=== PATIENT | male | born 1985 | race Caucasian/White ===

== ENCOUNTER 2017-01-28 04:11 | Emergency (ER) | payer SELFPAY ==
[~2017-01-28] VITALS: Ht 185.4 cm; Wt 86.0 kg
[2017-01-28 09:16] VITALS: BP 127/90
== END 2017-01-28 09:35 | disposition home or self-care (01) ==
LOC: EDBD 04:11 → ED 09:00
DX: S00.81XA Abrasion of other part of head, initial encounter (principal); F10.120 Alcohol abuse with intoxication, uncomplicated; F17.210 Nicotine dependence, cigarettes, uncomplicated; W19.XXXA Unspecified fall, initial encounter; Y93.89 Activity, other specified; Y92.89 Other specified places as the place of occurrence of the external cause; Y99.8 Other external cause status
CPT/HCPCS: 70450; 72125; 99284